=== PATIENT | male | born 1935 | race African-American/Black ===

== ENCOUNTER 2019-10-04 13:02 | Inpatient (IN) ==
--- NOTE | 2019-10-04 13:40 | EKG Report ---
Test Performed on : 10/04/2019 1:38:53 PM Test Reason : syncope Blood Pressure : / mmHG Vent. Rate : 062 BPM Atrial Rate : 062 BPM P-R Int : 134 ms QRS Dur : 158 ms QT Int : 426 ms P-R-T Axes : -18 041 086 degrees QTc Int : 432 ms Atrial-sensed ventricular-paced rhythm Abnormal ECG When compared with ECG of 13-DEC-2017 15:12, No significant change was found Unconfirmed Result
--- NOTE | 2019-10-04 13:46 | PROVIDER DOCUMENTATION ---
This chart was entered by Abby Frey Scribe, acting as scribe for Jaclyn Kent MD. HPI-Syncope/Dizziness - General Chief Complaint: B/P Problems Stated Complaint: SYNCOPE Time Seen by Provider: 10/04/19 13:12 Source: patient Allergies/Adverse Reactions: Patient Allergies Allergy/AdvReac Type Severity Reaction Status Date / Time No Known Allergies Allergy Verified 04/27/16 15:47 Home Medications: Home Medication List Medication Instructions Recorded Confirmed Last Taken Type Metoclopramide [Reglan] 10 mg PO BID #0 tablet 05/01/16 12/13/17 12/13/17 Rx Carvedilol [Coreg] 6.25 mg PO BID 09/22/17 12/13/17 12/13/17 History Omeprazole [Prilosec] 40 mg PO DAILY@0700 09/22/17 12/13/17 12/13/17 History Insulin Humulin 70/30 [Humulin 25 unit SUBQ BID 12/13/17 12/13/17 12/13/17 History 70/30] Lisinopril 1 tab PO DAILY 12/13/17 12/13/17 12/13/17 History Sulfamethoxazole/Trimethoprim 0.5 tab PO DAILY 12/13/17 12/13/17 12/13/17 History [Bactrim Ds Tablet] - History of Present Illness-Syncope/Dizzy Nature of Presenting Problem: Patient is a 84 year old male who presents to the ED via EMS after having a syncopal episode. Family states patient was sitting at his doctor's office and became unresponsive. RN states EMS reported patient's blood pressure was 80/44 on their arrival. Patient denies chest pain. Prior Episodes: reports: single episode today Onset/Duration: reports: just prior to arrival Timing: reports: improving Position/Activity at time of episode: reports: sitting Symptoms prior to episode: reports: other (dizziness, blurred vision and wea kness) Context: reports: became unresponsive Loss of Consciousness: unsure Current Symptoms: reports: none/feels normal Recently Seen Here or By Another Healthcare Provider: Yes Review of Systems - Adult - REVIEW OF SYSTEMS - ADULT Constitutional: reports: no symptoms reported Eyes: reports: no symptoms reported Ears, Nose, Mouth & Throat: reports: no symptoms reported Cardiovascular: reports: no symptoms reported Respiratory: reports: no symptoms reported Gastrointestinal: reports: no symptoms reported Genitourinary: reports: no symptoms reported Musculoskeletal: reports: no symptoms reported Integumentary: reports: no symptoms reported Neurological: reports: see HPI, syncope. denies: dizziness/vertigo, headache/migraines Psychiatric: reports: no symptoms reported Endocrine: reports: no symptoms reported Hematologic/Lymphatic: reports: no symptoms reported Allergic/Immunologic: reports: no symptoms reported All Other Systems: Reviewed and Negative Past History - Adult - PAST MEDICAL HISTORY-ADULT Review of Records: reports: Old Records Reviewed, Nursing Assessment Review, Medications Reviewed, Social history reviewed & non-contributory. Major Childhood Illnesses: reports: denies history Cardiovascular: reports: A-Fib, HTN, pacemaker Respiratory: reports: denies history Gastrointestinal: reports: denies history Obstetrical/Gynecological: reports: denies history Genitourinary: reports: kidney stones, prostate cancer Musculoskeletal: reports: denies history Neurological: reports: denies history Endocrine/Immune: reports: Diabetes, thyroid disorder Other Conditions: reports: denies history - PRIOR SURGERIES/PROCEDURES Surgical/Procedure History: reports: reviewed, not pertinent - IMMUNIZATION STATUS Childhood Immunizations: See Nurse Assessment Flu Vaccine: See Nurse Assessment - FAMILY HISTORY Family History: reviewed, not pertinent - SOCIAL HISTORY Smoking: cigarettes (former) Substance Use: denies Living Situation: family Physical Exam-General - PHYSICAL EXAM-ADULT Initial Vital Signs Reviewed: Yes - CONSTITUTIONAL General Appearance: alert, no apparent distress. negative: lethargic - HEAD, EARS, NOSE, MOUTH & THROAT HENMT: normocephalic/atraumatic, moist mucous membranes. negative: angioedema - RESPIRATORY Respiratory: chest non-tender, lungs clear, normal breath sounds. negative: crackles, stridor - CARDIOVASCULAR Cardiovascular: regular rate, rhythm. negative: tachycardia, systolic murmur - GASTROINTESTINAL (ABDOMEN) Abdominal Exam: normal bowel sounds, non tender, soft. negative: rigid - MUSCULOSKELETAL Extremity: non-tender, normal inspection. negative: pedal edema - SKIN Integumentary: normal color, normal turgor, warm/dry. negative: diaphoresis, pa llor - NEUROLOGIC Neurologic: heel trimmer II-XII nml as tested, grossly normal, no motor/sensory deficits. negative: aphasia, facial droop - PSYCHIATRIC Psych/Mental Status: normal mood/affect, normal thought content, normal thought process, oriented x 3. negative: anxious Progress - PLAN OF CARE/RESULTS Progress/Plan/Lab Results: Vital Signs - 8 hr 10/04/19 13:00 10/04/19 13:14 10/04/19 14:28 Temperature 98.6 F Pulse Rate 71 72 Pulse Rate [Sitting] 72 Pulse Rate [Standing] 83 Pulse Rate [Supine] 71 Respiratory Rate 20 18 Blood Pressure 142/66 142/66 Blood Pressure [Sitting] 97/46 Blood Pressure [Standing] 131/66 Blood Pressure [Supine] 123/58 O2 Sat by Pulse Oximetry 99 96 10/04/19 15:39 Temperature Pulse Rate 70 Pulse Rate [Sitting] Pulse Rate [Standing] Pulse Rate [Supine] Respiratory Rate 18 Blood Pressure 108/52 Blood Pressure [Sitting] Blood Pressure [Standing] Blood Pressure [Supine] O2 Sat by Pulse Oximetry 96 Laboratory Results - last 24 hr 10/04/19 10/04/19 10/04/19 13:29 13:45 13:45 WBC 3.40 L RBC 4.61 L Hgb 12.9 L Hct 39.2 L MCV 85.0 MCH 28.0 MCHC 32.9 L RDW Std Deviation 12.9 Plt Count 196 MPV 10.3 Immature Gran % (Auto) 0.0 Neut % (Auto) 69.7 Lymph % (Auto) 23.2 [place] % (Auto) 6.2 Eos % (Auto) 0.6 Baso % (Auto) 0.3 Immature Gran # (Auto) 0.00 Neut # (Auto) 2.37 Lymph # (Auto) 0.79 L [place] # (Auto) 0.21 Eos # (Auto) 0.02 Baso # (Auto) 0.01 PT INR PTT (Actin FS) Sodium 136 Potassium 3.3 L Chloride 96 L Carbon Dioxide 26 Anion Gap 14 BUN 8 Creatinine 0.9 Estimated GFR/1.73 m2 > 60 BUN/Creatinine Ratio 9 Glucose 146 H POC Glucose 219 H D Calculated Osmolality 273 Calcium 8.7 L Total Bilirubin 0.47 AST 15 ALT 10 Alkaline Phosphatase 144 H Troponin T High Sens Total Protein 6.3 Albumin 3.5 Globulin 2.8 Albumin/Globulin Ratio 1.3 TSH Free T4 Urine Source Urine Color Urine Turbidity Urine pH Ur Specific [place] Urine Protein Ur Glucose (Stick) Ur Ketones (Stick) Urine Blood Urine Nitrite Urine Bilirubin Urobilinogen Dipstick Urine Leukocytes Urine WBC (Auto) Urine RBC (Auto) U Epithel Cells (Auto) Urine Bacteria (Auto) 10/04/19 10/04/19 10/04/19 13:45 13:45 13:45 WBC RBC Hgb Hct MCV MCH MCHC RDW Std Deviation Plt Count MPV Immature Gran % (Auto) Neut % (Auto) Lymph % (Auto) [place] % (Auto) Eos % (Auto) Baso % (Auto) Immature Gran # (Auto) Neut # (Auto) Lymph # (Auto) [place] # (Auto) Eos # (Auto) Baso # (Auto) PT 13.5 INR 1.02 PTT (Actin FS) 34.7 Sodium Potassium Chloride Carbon Dioxide Anion Gap BUN Creatinine Estimated GFR/1.73 m2 BUN/Creatinine Ratio Glucose POC Glucose Calculated Osmolality Calcium Total Bilirubin AST ALT Alkaline Phosphatase Troponin T High Sens 25 H Total Protein Albumin Globulin Albumin/Globulin Ratio TSH 0.93 Free T4 1.38 Urine Source Urine Color Urine Turbidity Urine pH Ur Specific [place] Urine Protein Ur Glucose (Stick) Ur Ketones (Stick) Urine Blood Urine Nitrite Urine Bilirubin Urobilinogen Dipstick Urine Leukocytes Urine WBC (Auto) Urine RBC (Auto) U Epithel Cells (Auto) Urine Bacteria (Auto) 10/04/19 14:34 WBC RBC Hgb Hct MCV MCH MCHC RDW Std Deviation Plt Count MPV Immature Gran % (Auto) Neut % (Auto) Lymph % (Auto) [place] % (Auto) Eos % (Auto) Baso % (Auto) Immature Gran # (Auto) Neut # (Auto) Lymph # (Auto) [place] # (Auto) Eos # (Auto) Baso # (Auto) PT INR PTT (Actin FS) Sodium Potassium Chloride Carbon Dioxide Anion Gap BUN Creatinine Estimated GFR/1.73 m2 BUN/Creatinine Ratio Glucose POC Glucose Calculated Osmolality Calcium Total Bilirubin AST ALT Alkaline Phosphatase Troponin T High Sens Total Protein Albumin Globulin Albumin/Globulin Ratio TSH Free T4 Urine Source CLEAN CATCH Urine Color YELLOW Urine Turbidity CLEAR Urine pH 6.0 Ur Specific [place] 1.034 Urine Protein NEGATIVE Ur Glucose (Stick) >1000 A Ur Ketones (Stick) NEGATIVE Urine Blood TRACE A Urine Nitrite NEGATIVE Urine Bilirubin NEGATIVE Urobilinogen Dipstick NORMAL Urine Leukocytes NEGATIVE Urine WBC (Auto) <10 Urine RBC (Auto) <10 U Epithel Cells (Auto) <10 Urine Bacteria (Auto) NEGATIVE Orders Category Date Time Status Diabetic Diet Diet 10/04/19 15:[address] HEAD W/O CONTRAST [CT] Stat Exams 10/04/19 13:26 Completed CBC WITH ELECTRONIC DIFF [HEME] Stat Lab 10/04/19 13:45 Completed COMPREHENSIVE METABOLIC PANEL [CHEM] Stat Lab 10/04/19 13:45 Completed FREE T4 Stat Lab 10/04/19 13:45 Completed PROTIME WITH INR [COAG] Stat Lab 10/04/19 13:45 Completed PTT [COAG] Stat Lab 10/04/19 13:45 Completed TROPONIN T HIGH SENSITIVITY Stat Lab 10/04/19 13:45 Completed TROPONIN T HIGH SENSITIVITY Stat Lab 10/04/19 15:56 Received TSH Stat Lab 10/04/19 13:45 Completed URINALYSIS W/POSS RFLX CULT [URINALYSIS] Stat Lab 10/04/19 14:34 Completed Ns 1000 ml IV Bolus X1 Med 10/04/19 16:15 Ordered 0.9% Sodium Chloride Inj [Ns] 1,000 ml IV 999 mls/hr EKG [EKG] Stat Ther 10/04/19 13:27 Draft EKG [EKG] Stat Ther 10/04/19 15:01 Ordered Patient with orthostatic hypotension and was unable to stand. Troponin slightly elevated but EKG showing nothing acute. Will need admission. Spoke to Dr Landeros, patient's PCP who accepted patient for admission. Wants basic orders placed. Stable for floor with telemetry. Result Diagrams: 10/04/19 13:45 10/04/19 13:45 - EKG 1 Time of EKG reading by physician:: 13:42 EKG Read and Signed by:: Jaclyn Kent EKG Interpretation (*Must complete 3 of following elements*): Abnormal Rate: 62 Rhythm: atrial paced rhythm [place]: normal PA Interval: normal Comments: abnormal ECG 2 Time of EKG reading by physician:: 16:10 EKG Read and Signed by:: Jaclyn Kent EKG Interpretation (*Must complete 3 of following elements*): Abnormal Rate: 62 Rhythm: atrial paced rhythm [place]: normal PA Interval: normal Prior EKG Comparison: unchanged from prior - CT/MRI 1 CT Study: Head Impression: See EMR Report ( CT HEAD W/O CONTRAST - 10/04/2019 INDICATION: syncope COMPARISON: None FINDINGS: The ventricles and sulci are normal in size and contour. No intracranial mass or hemorrhage. The skull is intact. The sinuses mastoids and middle ears are clear. IMPRESSION: Negative exam. This exam was performed using automated exposure control, adjustment of mA or kV according to patient size, and/or use of iterative reconstruction technique Electronically signed by Scar De Leon 10/04/2019 2:00 PM 10/04/19 1400 Interpreting Physician: Scar De eLon MD Dictated Date/Time: 10/04/19 1400 cc: Jaclyn Kent MD; Delta Landeros MD) - CONSULTS/PCP/HOSPITALIST Notification #1 *Consult/PCP/Hospitalist*: Dr. Landeros Time Discussed: 16:16 Reason/Comments: Dr. Kent consulted with Dr. Landeros about patient Consult Disposition: Admit Departure - Departure Date of Disposition Decision: 10/04/19 Time of Disposition Decision: 16:16 DIAGNOSIS: Orthostatic hypotension, Weakness, Syncope, Elevated troponin Disposition: ADMITTED INPATIENT 09 Certified Medical Emergency: Emergent Condition: Stable Referrals and Follow-Ups: Delta Landeros MD [Primary Care Provider] - - Critical Care Note This patient required my direct & personal management of CC.: No Attestation - Physician/ SOLOMON Attestation Patient care was provided by Advanced Practice Provider:: No The physician spent face to face time with patient:: Yes Advanced Practice Provider documentation review:: Supervising physician onsite and consulted in the evaluation and care of this patient. The physician did have a face to face encounter with the patient. This chart was documented by the indicated scribe, (Abby Frey Scribe) and accurately reflects the services I performed and decisions made by , Jaclyn Kent MD, as attested by the provider's signature.
[2019-10-04 14:00] LABS: BASO# 0.01 X1000 (0.0-0.2); BASO% 0.3 % (0.0-0.8); EOS# 0.02 X1000 (0.0-0.7); EOS% 0.6 % (0.0-10.0); HEMATOCRIT 39.2 % (42.0-52.0); HEMOGLOBIN 12.9 g/dL (14.0-18.0); LYMPH# 0.79 X1000 (1.2-3.4); LYMPH% 23.2 % (20.5-51.1); MCHC 32.9 g/dL (33-37); MONO# 0.21 X1000 (0.11-0.59); MONO% 6.2 % (1.7-9.3); MPV 10.3 FL (7.4-10.4); NEUT# 2.37 X1000 (1.4-6.5); NEUT% 69.7 % (42.2-75.2); PLT 196 X1000 (130-400); RBC 4.61 XMIL (4.7-6.1); RDW 12.9 % (11.5-14.5)
--- NOTE | 2019-10-04 14:03 | Diag Imaging Result Doc PS360 ---
CT HEAD W/O CONTRAST - 10/04/2019 INDICATION: syncope COMPARISON: None FINDINGS: The ventricles and sulci are normal in size and contour. No intracranial mass or hemorrhage. The skull is intact. The sinuses mastoids and middle ears are clear. IMPRESSION: Negative exam. This exam was performed using automated exposure control, adjustment of mA or kV according to patient size, and/or use of iterative reconstruction technique Electronically signed by Scar De Leon 10/04/2019 2:00 PM
[2019-10-04 14:08] LABS: INR 1.02; PROTIME 13.5 Seconds (11.0-16.0)
[2019-10-04 14:09] LABS: PTT 34.7 Seconds (22.3-41.8)
[2019-10-04 14:40] LABS: URINE SOURCE CLEAN CATCH
[2019-10-04 14:42] LABS: FREE T4 1.38 ng/dL (0.93-1.70); TSH 0.93 uIUmL (0.27-4.20)
[2019-10-04 14:42] LABS: BILIRUBIN URINE NEGATIVE (NEGATIVE); BLOOD URINE TRACE (NEGATIVE); COLOR YELLOW; GLUCOSE URINE >1000 mg/dL (NEGATIVE); KETONE URINE NEGATIVE (NEGATIVE); LEUKOCYTES URINE NEGATIVE (NEGATIVE); NITRITE URINE NEGATIVE (NEGATIVE); PROTEIN URINE NEGATIVE (NEGATIVE); SP GRAVITY URINE 1.034; TURBIDITY URINE CLEAR (CLEAR); UR EPITHELIAL CELLS <10 /HPF (<10); URINE BACTERIA NEGATIVE /HPF; URINE RBC <10 /HPF (<10); URINE WBC <10 /HPF (<10); UROBILINOGEN URINE NORMAL (NORMAL)
[2019-10-04 14:56] LABS: AGAP 14; ALB/GLOB RATIO 1.3; ALBUMIN 3.5 g/dL (3.5-5.0); ALKALINE PHOSPHATASE 144 U/L (32-122); BUN 8 mg/dL (8-22); CALCIUM 8.7 mg/dL (8.8-10.2); CHLORIDE 96 mmol/L (98-107); COSMO 273; CREATININE 0.9 mg/dL (0.7-1.2); ESTIMATED GFR > 60; GLUCOSE 146 mg/dL (70-104); GOT 15 U/L (10-34); GPT 10 U/L (10-44); POTASSIUM 3.3 mmol/L (3.5-5.1); SODIUM 136 mmol/L (136-145); TCO2 26 mmol/L (25-35); TOTAL BILIRUBIN 0.47 mg/dL (0.20-1.00); TOTAL PROTEIN 6.3 g/dL (6.3-8.3)
[2019-10-04] MEDS ORDERED: NS 1,000 ML IV ONE ×2 (16:15→16:35)
--- NOTE | 2019-10-04 16:37 | EKG Report ---
Test Performed on : 10/04/2019 4:06:15 PM Test Reason : repeat EKG Blood Pressure : / mmHG Vent. Rate : 067 BPM Atrial Rate : 067 BPM P-R Int : 136 ms QRS Dur : 162 ms QT Int : 452 ms P-R-T Axes : 055 035 088 degrees QTc Int : 477 ms Atrial-sensed ventricular-paced rhythm with occasional premature ventricular complexes. Abnormal ECG When compared with ECG of 04-OCT-2019 13:38, (Unconfirmed) premature ventricular complexes. are now present Vent. rate has increased BY 5 BPM Unconfirmed Result
[2019-10-04] MEDS ORDERED: NS 1,000 ML IV SCH (19:45)
[2019-10-04] MEDS ORDERED: HUMULIN R SUBQ SCH ×2 (21:00)
--- NOTE | 2019-10-04 22:23 | HISTORY AND PHYSICAL ---
CHIEF COMPLAINT: Unresponsive, sitting in the chair in my waiting room with low blood pressure, blood sugar is 300. HISTORY OF PRESENT ILLNESS: He is an 84-year-old male, lives in [place] who came to my office with annual exam. He was accompanied by the sister. He walked into the waiting room and basically sitting, slow response, mumbling and incoherent. We checked the blood sugar 300, pulse 90. Blood pressure is 70/60. We put him in Trendelenburg position, called 911 and transferred to the [facility]. Blood pressure was 80/44 on arrival, and he was worked up in the emergency room. Patient was resuscitated with IV fluids. He was orthostatic, and he was dehydrated. Basically admitted to the hospital for near-syncope due to orthostatic hypotension. The patient has uncontrolled diabetes, noncompliant. He also has some cognitive deficits. As a result, he has been admitted to the hospital. PAST MEDICAL HISTORY: 1. Uncontrolled diabetes. 2. Dementia. 3. Ulcerative colitis. 4. History of anemia. 5. History of congestive heart failure, EF 20% status post biventricular pacemaker. 6. Hiatal hernia. 7. Hypertension. 8. Kidney stones. 9. Acid reflux disease. 10. 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 11. Goiter. PAST SURGICAL HISTORY: Permanent pacemaker with biventricular pacemaker, right cataract surgery. MEDICATIONS: Reglan 10 b.i.d., Coreg 6.25 p.o. b.i.d., Prilosec 40 daily, insulin 25 subcutaneous b.i.d., losartan 25 mg daily. ALLERGIES: Zestril due to cough. SOCIAL HISTORY: 2nd time. Lives in [place], 3 kids. Former smoking, no alcohol. FAMILY HISTORY: Father , cause was not known. Mom of heart attack at 96. HEALTH MAINTENANCE: Flu vaccine 2018, pneumococcal 2016, last physical May 2018, colonoscopy 2011, mini-mental 26/30 last year. REVIEW OF SYSTEMS: HEENT: Right now he denies any headache. No vision problem. History of goiter in the neck. Cardiopulmonary: No chest pain, shortness of breath, PND, orthopnea. Gastrointestinal: No bleeding per rectum. No nausea, abdominal pain. Genitourinary: No history of hesitancy, frequency, dysuria. Musculoskeletal: No swelling of legs. No joint pain. Neurologic: No focal symptoms or weakness. PHYSICAL EXAMINATION: VITAL SIGNS: Temperature is 98 degrees, pulse is 64, blood pressure 138/52, room air 98%, 5 feet 11 inches, 170 pounds. HEENT: Atraumatic, normocephalic. Pupils equal, reactive to light. NECK: Supple. No lymphadenopathy. Goiter present. CHEST: Bilateral air entry. HEART: Sounds are regular. No murmur. ABDOMEN: Belly is soft, nontender. Good bowel sounds. No peripheral edema or cyanosis. No obvious neurological deficits. INVESTIGATIONS: White cell count 3.4, hematocrit 39.2, platelets 196,000, PT/INR is normal. SMA 7, potassium 3.3, glucose 146, and CK, troponin were normal. Thyroid was normal. Urinalysis is clear. EKG: Pacemaker rhythm. CT head was negative. ASSESSMENT AND PLAN: 1. An 84-year-old male admitted to the hospital with near syncope due to hypotension. Plan of care is IV fluids. 2. Ischemic cardiomyopathy status post biventricular pacemaker, and we will hold the losartan, and he is on Coreg. We will hold the blood pressure medicine for tonight. 3. Uncontrolled diabetes on insulin. We will follow up on sliding scale with insulin coverage. Change the diet to ADA diet. 4. History of low-grade malignancy in the prostate, stable. 5. History of colitis, anemia, stable. We will check the labs in the morning. 6. Health Maintenance: Pneumococcal vaccine 23 was given 2016. 7. History of kidney stones stable. 8. Simple goiter, stable. Normal thyroid function tests. 9. In the past, he was hypotensive, and I stopped the terazosin, lisinopril, Cardizem. Apparently, he had a biventricular pacemaker done by Dr. Crisostomo. He started on Coreg and losartan low doses. 10. Uncontrolled diabetes due to noncompliance. 11. We will initiate vaccination protocol prior to the discharge. Radiocommunications Technician consult for rehab placement, and we will follow up. cc: Wilfred Landeros MD MTDD
[2019-10-05 05:38] LABS: BASO# 0.01 X1000 (0.0-0.2); BASO% 0.3 % (0.0-0.8); EOS# 0.04 X1000 (0.0-0.7); EOS% 1.3 % (0.0-10.0); HEMATOCRIT 36.7 % (42.0-52.0); LYMPH# 1.34 X1000 (1.2-3.4); LYMPH% 43.2 % (20.5-51.1); MCH 28.2 PG (27-31); MCHC 32.7 g/dL (33-37); MCV 86.2 FL (81-99); MONO# 0.18 X1000 (0.11-0.59); MONO% 5.8 % (1.7-9.3); MPV 10.5 FL (7.4-10.4); NEUT# 1.53 X1000 (1.4-6.5); NEUT% 49.4 % (42.2-75.2); PLT 180 X1000 (130-400); RBC 4.26 XMIL (4.7-6.1); RDW 12.9 % (11.5-14.5)
[2019-10-05 06:14] LABS: AGAP 13; BUN 6 mg/dL (8-22); CHLORIDE 98 mmol/L (98-107); COSMO 280; CREATININE 0.8 mg/dL (0.7-1.2); ESTIMATED GFR > 60; GLUCOSE 260 mg/dL (70-104); POTASSIUM 3.2 mmol/L (3.5-5.1); SODIUM 137 mmol/L (136-145); TCO2 26 mmol/L (25-35)
--- NOTE | 2019-10-05 07:28 | EKG Report ---
Test Performed on : 10/05/2019 06:26:37 AM Test Reason : cp Blood Pressure : / mmHG Vent. Rate : 066 BPM Atrial Rate : 066 BPM P-R Int : 148 ms QRS Dur : 150 ms QT Int : 480 ms P-R-T Axes : 034 214 080 degrees QTc Int : 503 ms Suspect unspecified pacemaker failure Atrial-sensed ventricular-paced rhythm Abnormal ECG Confirmed by Miki Bowen MD ([id number]) on 10/05/2019 12:16:01 PM
[2019-10-05] MEDS ORDERED: INSULIN PEN NEEDLES ONE (09:36)
[2019-10-05] MEDS: REGLAN PO SCH ×2 (11:12→21:28)
[2019-10-05] MEDS: HUMULIN 70/30 SUBQ SCH ×2 (11:42→16:54)
[2019-10-05] MEDS ORDERED: KLOR-CON PO ONE (20:32)
--- NOTE | 2019-10-05 20:54 | PROGRESS NOTE ---
DATE: 10/05/2019 SUBJECT: Since he has been hospitalized, his blood pressure is stable. I stopped losartan. He is eating well and blood sugars continue to rise. REVIEW OF SYSTEMS: None reported. OBJECTIVE: Temperature is 97.8 degrees, pulse is 95, blood pressure is 140/60s. He is 99% on room air.HEENT: Within normal limits. Neck: Supple. Chest: Clear to auscultation. Heart: Sounds are regular. Abdomen: Belly is soft, nontender. Neurologic: No neurological deficits. INVESTIGATIONS: White cell count 3.1, hematocrit 36, platelets 180,000. SMA-7: Potassium 3.2. Sugar is 265. Cardiac enzymes were negative. ASSESSMENT AND PLAN: 1. Near syncope in my office due to hypotension. Hold the losartan. 2. Rule out adrenal insufficiency. Cortisone stimulation test. 3. Hypokalemia. Replace the potassium. 4. Orthostatic blood pressure. 5. Optimize the treatment for diabetes. 6. Cashier And Salesperson consult for rehab placement. 7. Discontinue IV fluids and check the orthostatic blood pressure. 8. Reconcile home medicines, which include Coreg and will follow up. Level of documentation is 25 minutes. cc: Wilfred Landeros MD
[2019-10-05] MEDS: COREG PO SCH (21:28)
[2019-10-06 05:14] LABS: BASO# 0.01 X1000 (0.0-0.2); BASO% 0.3 % (0.0-0.8); EOS# 0.03 X1000 (0.0-0.7); EOS% 0.9 % (0.0-10.0); HEMATOCRIT 36.6 % (42.0-52.0); HEMOGLOBIN 11.9 g/dL (14.0-18.0); LYMPH# 0.64 X1000 (1.2-3.4); LYMPH% 19.2 % (20.5-51.1); MCH 28.3 PG (27-31); MCHC 32.5 g/dL (33-37); MCV 86.9 FL (81-99); MPV 10.3 FL (7.4-10.4); NEUT# 2.45 X1000 (1.4-6.5); NEUT% 73.6 % (42.2-75.2); PLT 175 X1000 (130-400); RBC 4.21 XMIL (4.7-6.1); RDW 12.9 % (11.5-14.5); WBC 3.33 X1000 (4.8-10.8)
[2019-10-06 05:39] LABS: AGAP 11; BUN 11 mg/dL (8-22); CHLORIDE 101 mmol/L (98-107); COSMO 283; CREATININE 0.8 mg/dL (0.7-1.2); ESTIMATED GFR > 60; GLUCOSE 205 mg/dL (70-104); POTASSIUM 3.6 mmol/L (3.5-5.1); SODIUM 139 mmol/L (136-145); TCO2 27 mmol/L (25-35)
[2019-10-06] MEDS: PRILOSEC PO SCH (06:26)
[2019-10-06] MEDS: HUMULIN 70/30 SUBQ SCH ×2 (06:26→16:40)
[2019-10-06] MEDS ORDERED: CORTROSYN IV ONE (08:00)
[2019-10-06] MEDS ORDERED: SODIUM CHLORIDE 0.9% 10 ML ONE (10:53)
[2019-10-06] MEDS: COREG PO SCH ×2 (14:18→22:07)
[2019-10-06] MEDS: REGLAN PO SCH ×2 (14:18→22:07)
[2019-10-06] MEDS: COZAAR PO SCH (14:18)
--- NOTE | 2019-10-06 21:13 | PROGRESS NOTE ---
DATE: 10/06/2019 SUBJECTIVE: The patient is doing much better. Blood pressure is getting better. The patient is undergoing cortisone stimulation test, which was normal. REVIEW OF SYSTEMS: None reported. Eating well. OBJECTIVE: On exam, temperature is 97 degrees. Orthostatic blood pressures were recorded. Hemodynamics are stable. HEENT exam within normal limits. Neck is supple. Chest is clear. Heart sounds are regular. Belly is soft, nontender. No neurological deficits. LABORATORY DATA: White cell count 3.3, hematocrit 36, platelets 175,000. Sodium 139, potassium 3.6, chloride 101, BUN 11, creatinine 0.8, glucose 205, calcium 8.0. Cortisol response were normal. ASSESSMENT AND PLAN: 1. Near-syncope due to hypotension. 2. History of congestive heart failure, ejection fraction 20%, status post biventricular pacemaker. Continue on Coreg and low dose of losartan. 3. Uncontrolled diabetes. Insulinopenic. Continue on insulin. 4. Acid reflux disease, on Prilosec. 5. History of prostate cancer, slow growing, stable. 6. Disposition: Will go to rehabilitation placement. Level of documentation is 25 minutes. cc: Wilfred Landeros MD
[2019-10-07] MEDS ORDERED: INSULIN PEN NEEDLES ONE (04:58)
[2019-10-07 05:21] LABS: BASO# 0.01 X1000 (0.0-0.2); BASO% 0.3 % (0.0-0.8); EOS# 0.05 X1000 (0.0-0.7); EOS% 1.6 % (0.0-10.0); HEMOGLOBIN 11.5 g/dL (14.0-18.0); LYMPH# 1.15 X1000 (1.2-3.4); LYMPH% 36.9 % (20.5-51.1); MCHC 31.9 g/dL (33-37); MCV 87.8 FL (81-99); MONO# 0.25 X1000 (0.11-0.59); MPV 10.3 FL (7.4-10.4); NEUT# 1.66 X1000 (1.4-6.5); NEUT% 53.2 % (42.2-75.2); PLT 186 X1000 (130-400); RDW 13.4 % (11.5-14.5); WBC 3.12 X1000 (4.8-10.8)
[2019-10-07 06:15] LABS: AGAP 12; BUN 11 mg/dL (8-22); CALCIUM 8.4 mg/dL (8.8-10.2); CHLORIDE 100 mmol/L (98-107); COSMO 284; CREATININE 0.8 mg/dL (0.7-1.2); GLUCOSE 268 mg/dL (70-104); POTASSIUM 3.3 mmol/L (3.5-5.1); SODIUM 138 mmol/L (136-145); TCO2 26 mmol/L (25-35)
[2019-10-07] MEDS: PRILOSEC PO SCH (06:36)
[2019-10-07] MEDS: HUMULIN 70/30 SUBQ SCH ×2 (06:36→17:28)
[2019-10-07] MEDS ORDERED: KLOR-CON PO ONE (07:58)
[2019-10-07] MEDS: COZAAR PO SCH (10:12)
[2019-10-07] MEDS: COREG PO SCH ×2 (10:12→21:31)
[2019-10-07] MEDS: REGLAN PO SCH ×2 (10:13→21:31)
--- NOTE | 2019-10-07 11:00 | Diag Imaging Result Doc PS360 ---
EXAM: CHEST-PORTABLE HISTORY: syncope TECHNIQUE: Single view COMPARISON: 04/27/2016 FINDINGS: The lungs are well expanded. The heart is not enlarged. Right-sided pacemaker. The vessels are not distended. There are no infiltrates. No effusion identified. IMPRESSION: Negative exam. Electronically signed by Myles Dhillon 10/07/2019 10:57 AM
--- NOTE | 2019-10-07 20:19 | PROGRESS NOTE ---
DATE: 10/07/2019 SUBJECTIVE: The patient is refusing to go for rehab. He wants to go home with outpatient home health and monitoring of his blood pressure, orthostatic. OBJECTIVE: Temp is 97 degrees, pulse is 62 blood pressure is 147/67. HEENT exam within normal limits. Neck is supple. Chest is clear. Heart sounds are regular. Belly is soft, nontender. No deficits noted. INVESTIGATIONS: Cortisone stimulation test is negative. CBC: White cell count 3.1, hematocrit 36, platelets 186,000. SMA 7 is normal. Potassium 3.3, glucose 268. ASSESSMENT AND PLAN: 1. Near syncope due to orthostatic hypotension. Discontinue IV fluids. Restart on Coreg and losartan. 2. Congestive heart failure, systolic dysfunction, status post pacemaker with biventricular pacemaker. 3. Uncontrolled diabetes. Increasing 70-30 30 units subcutaneous b.i.d. 4. Hiatal hernia with reflux disease, on Prilosec and Reglan. 5. Hypokalemia. Replace the potassium. DISPOSITION: Physical therapy consult and we will discuss with the family about disposition. LEVEL OF DOCUMENTATION: 25 minutes. cc: Wilfred Landeros MD
[2019-10-08] MEDS: HUMULIN 70/30 SUBQ SCH ×2 (06:36→17:55)
[2019-10-08] MEDS: PRILOSEC PO SCH (06:36)
[2019-10-08] MEDS: COZAAR PO SCH (10:40)
[2019-10-08] MEDS: REGLAN PO SCH ×2 (10:40→20:44)
[2019-10-08] MEDS: COREG PO SCH ×2 (10:40→20:44)
--- NOTE | 2019-10-08 21:16 | PROGRESS NOTE ---
DATE: 10/08/2019 SUBJECTIVE: The patient is anxious to go home, refusing for rehab. I was not able to find the family members. He is sitting out of the bed. Orthostatic blood pressure is stable off IV fluids. OBJECTIVE: Temperature is 98.8 degrees, pulse 78, blood pressure is 110/50.HEENT: Within normal limits. Neck: Supple. Chest: Clear. Heart sounds are regular. Belly is soft, nontender. No obvious deficits. INVESTIGATION: Blood sugar 156. ASSESSMENT AND PLAN: 1. Uncontrolled diabetes. Noncompliant. Taking 70/30, 30 units subcutaneous b.i.d. 2. Ischemic cardiomyopathy, congestive heart failure, biventricular pacemaker. On Coreg and losartan. 3. Hiatal hernia, acid reflux disease. On Prilosec and Reglan. 4. Ulcerative colitis. Stable. We will check the labs in the morning. We will discuss with the family tomorrow for disposition. LEVEL OF DOCUMENTATION: 25 minutes. cc: Wilfred Landeros MD
[2019-10-09 05:50] LABS: BASO# 0.01 X1000 (0.0-0.2); BASO% 0.3 % (0.0-0.8); EOS# 0.07 X1000 (0.0-0.7); EOS% 2.2 % (0.0-10.0); HEMATOCRIT 36.4 % (42.0-52.0); HEMOGLOBIN 11.6 g/dL (14.0-18.0); MCH 28.4 PG (27-31); MCHC 31.9 g/dL (33-37); MONO# 0.23 X1000 (0.11-0.59); MONO% 7.1 % (1.7-9.3); MPV 10.6 FL (7.4-10.4); NEUT# 1.92 X1000 (1.4-6.5); NEUT% 59.4 % (42.2-75.2); PLT 184 X1000 (130-400); RBC 4.09 XMIL (4.7-6.1); RDW 13.5 % (11.5-14.5); WBC 3.23 X1000 (4.8-10.8)
[2019-10-09] MEDS: PRILOSEC PO SCH (06:15)
[2019-10-09 06:33] LABS: AGAP 7; BUN 13 mg/dL (8-22); CALCIUM 8.6 mg/dL (8.8-10.2); CHLORIDE 103 mmol/L (98-107); COSMO 281; CREATININE 0.8 mg/dL (0.7-1.2); ESTIMATED GFR > 60; GLUCOSE 85 mg/dL (70-104); POTASSIUM 3.6 mmol/L (3.5-5.1); SODIUM 141 mmol/L (136-145); TCO2 31 mmol/L (25-35)
[2019-10-09] MEDS: HUMULIN 70/30 SUBQ SCH ×2 (09:07→17:16)
[2019-10-09] MEDS: COZAAR PO SCH (09:07)
[2019-10-09] MEDS: REGLAN PO SCH ×2 (09:07→21:22)
[2019-10-09] MEDS: COREG PO SCH ×2 (09:07→21:22)
--- NOTE | 2019-10-09 15:25 | PROGRESS NOTE ---
DATE: 10/09/2019 SUBJECTIVE: The patient is vacillating. Family decided he needs to be in rehab. He is also not following instructions. He is not eating a proper diet. I had a long talk with the niece who is ambivalent at this time. Off IV fluids. Hemodynamics were stable. REVIEW OF SYSTEMS: Otherwise none reported. OBJECTIVE: Is 97.9 degrees, pulse 64, upon standing blood pressure is 140/64.HEENT: Within normal limits. Neck: Supple. Chest: Clear to auscultation. Heart: Sounds are regular. Abdomen: Belly is soft and nontender. Good bowel sounds. Neurologic: No neurological deficits. LABS: CBC: White cell count 3.2, hematocrit 36.4, platelets 184,000. SMA 7 is normal. Glucose 273. ASSESSMENT AND PLAN: 1. Hypertension. Stable. 2. Congestive heart failure status post biventricular pacemaker, stable. 3. Uncontrolled diabetes acid reflux disease. Stable. 4. Mild cognitive impairment. Out of the bed with physical therapy. DISPOSITION: Pending, outpatient home health versus rehab. Will discuss with the family again tomorrow with the social media marketing manager. Continue diabetic diet. LEVEL OF DOCUMENTATION: 25 minutes. cc: Wilfred Landeros MD
[2019-10-09] MEDS ORDERED: INSULIN PEN NEEDLES ONE (17:18)
[2019-10-10] MEDS: PRILOSEC PO SCH (06:19)
[2019-10-10] MEDS ORDERED: PREVNAR 13 IM ONE (08:36)
[2019-10-10] MEDS: REGLAN PO SCH (09:01)
[2019-10-10] MEDS: COZAAR PO SCH (09:01)
[2019-10-10] MEDS: COREG PO SCH (09:01)
[2019-10-10] MEDS: HUMULIN 70/30 SUBQ SCH (09:01)
--- NOTE | 2019-10-10 09:06 | DISCHARGE SUMMARY ---
ADMISSION DATE: 10/04/2019 DISCHARGE DATE: 10/10/2019 DISCHARGING DIAGNOSIS: Near syncope due to hypotension. SECONDARY DIAGNOSES: 1. Uncontrolled diabetes, A1c 13.2. 2. Dementia. 3. Ulcerative colitis, stable. 4. History of ischemic congestive heart failure, chronic systolic dysfunction, ejection fraction 20%, status post biventricular pacemaker. 5. Hiatal hernia. 6. Kidney stones. 7. Acid reflux disease. 8. Low-grade prostate cancer. 9. Simple goiter. BRIEF HISTORY: Please see the H and P that was done on 10/04/2019. In brief, this is an 84-year- old, -[place] male with the above problems. Slowly dwindling his activities of daily living as well as instrumental activities. Not able to take the medicines properly and is not helping. Blood sugars are out of control. Came to my office for annual examination. In my waiting room, he was found to be unresponsive, sitting in the chair. Blood pressure was 70/40. Blood sugar was 303. HOSPITAL COURSE: He was admitted to the hospital for near-syncope due to hypotension, uncontrolled diabetes. The patient was given IV fluids, followup hydration. Hemodynamics were stable. A1c was 13.1. He was given 70/30, 25 units subcutaneous b.i.d. He was not able to tolerate metformin. He was insulinopenic. He is noncompliant with the diet as per the family. Next, cortisone stimulation test was negative. Rest of the hospital course was uneventful. He has been transferred to rehab for recovery. LABS: CBC: White cell count 3.2, hematocrit 36, platelets 184,000. Sodium 140, potassium 3.6, chloride 103, BUN 13, creatinine 0.8, glucose 85. Chest x-ray was negative. CT of head was negative. DISCHARGE INSTRUCTIONS: 1. Reglan 10 p.o. b.i.d., Coreg 6.25 p.o. b.i.d., Prilosec 40 daily, 70/30 with 25 units subcutaneous b.i.d., losartan 25 daily, Icar C Plus 1 tablet daily, and Prevnar 13 was given prior to the discharge, and aspirin 81 mg daily, vitamin D 800 units daily. Continue to monitor blood sugars, on sliding scale with insulin coverage. 2. Follow up. cc: Wilfred Landeros MD
[2019-10-10 11:42] VITALS: BP 116/54
== END 2019-10-10 14:47 | DRG 312 ==
LOC: SUPCPDRO → ED 13:02 → 1N 18:45 → DIRADM 18:45 → OPS 18:45 → OBSVTOIN 18:46 → 1N 18:46 → INTOOBSV 18:46
PROVIDERS: ADMIT Internal Medicine; ATTEND Internal Medicine